=== PATIENT | female | born 1965 | race Caucasian/White ===

== ENCOUNTER → 2018-01-22 | Outpatient (CLI) | payer OTHER ==
[~2018-01-22] MED LIST: FLAX100030 PO; GLUC750T10 PO; NORG1TAB73 PO; POLY10DR20 OP; VITA200T PO
--- NOTE | 2018-01-22 17:01 | RADIOLOGY IMAGING REPORT ---
[place] [facility] [place] NAME: IMTIAZ LUI : [id number] MR: [id number] V: [id number] EXAM DATE: [id number] ORDERING PHYSICIAN: SRIRAM NEAL TECHNOLOGIST: Rita Ang PROCEDURE:BILATERAL DIGITAL SCREENING MAMMOGRAM WITH CAD ASSISTED INTERPRETATION & 3D TOMOSYNTHESIS COMPARISON:Prior mammograms 01/17/17, 12/25/15, 12/23/14, 12/17/13, 12/16/13, 12/13/12. INDICATIONS:SCREENING FINDINGS: Moderately dense fibroglandular tissue is seen throughout the breasts. The parenchymal pattern has remained stable allowing for difference in mammographic technique & patient positioning. There is no evidence of malignant appearing mass, malignant appearing calcifications or other secondary sign of malignancy in either breast. DIAGNOSTIC CATEGORY 1--NEGATIVE. RECOMMENDATIONS: ROUTINE MAMMOGRAM AND CLINICAL EVALUATION. IMPRESSION: BIRADS 1: Negative. No significant abnormality is seen. Dictated by: Priscilla Ruvalcaba M.D. on 01/22/2018 at 16:22 Transcribed by: CHEPE on 01/22/2018 at 16:23 Approved by: Priscilla Ruvalcaba M.D. on 01/22/2018 at 16:59 [facility]
== END ==
LOC: MAMO 01:30
PROVIDERS: ATTEND Obstetrics & Gynecology
DX: Z12.31 Encounter for screening mammogram for malignant neoplasm of breast (principal)
CPT/HCPCS: 77063; 77067

== ENCOUNTER → 2018-04-27 | Outpatient (CLI) | payer OTHER ==
[2018-04-27 08:41] LABS: PLATELET COUNT, AUTOMATED 175 K/uL (150-450)
[2018-04-27 09:40] LABS: LDL CHOLESTEROL 73 mg/dl
== END ==
LOC: LAB 08:17
PROVIDERS: ATTEND Obstetrics & Gynecology
DX: Z00.00 Encounter for general adult medical examination without abnormal findings (principal); N95.1 Menopausal and female climacteric states
CPT/HCPCS: 36415; 82040; 82247; 82310; 82374; 82435; 82465; 82565; 82670; 82947; 83001; 83718; 84075; 84132; 84155; 84295; 84443; 84450; 84460; 84478; 84520; 85025